=== PATIENT | male | born 1985 | race Caucasian/White ===

== ENCOUNTER 2019-11-10 08:06 | Emergency (ER) | payer MEDICAID ==
[~2019-11-10] VITALS: Ht 175.3 cm; Wt 127.0 kg
[2019-11-10] MEDS ORDERED: HYDROCODONE/ACETAMINOPHEN 5/325MG TABLET PO ONE (08:30)
[2019-11-10] MEDS ORDERED: ONDANSETRON HCL 4MG/2ML INJ IV ONE (09:15)
[2019-11-10] MEDS ORDERED: PROPOFOL 200MG/20ML VIAL IV ONE (09:15)
[2019-11-10] MEDS ORDERED: KETAMINE HCL 50 MG/ML 10ML IM ONE (09:15)
[2019-11-10 11:00] VITALS: BP 152/83
== END 2019-11-10 11:00 | disposition home or self-care (01) ==
LOC: ER 08:06
DX: S52.502A Unspecified fracture of the lower end of left radius, initial encounter for closed fracture (principal); V49.9XXA Car occupant (driver) (passenger) injured in unspecified traffic accident, initial encounter; Y93.89 Activity, other specified; Y92.89 Other specified places as the place of occurrence of the external cause; Y99.8 Other external cause status
CPT/HCPCS: 25605; 73110; 96372; 96374; 96375; 99152; 99285; J2405; J2704; J3490